=== PATIENT | female | born 1975 | race Hispanic/Latino ===

== ENCOUNTER → 2023-12-01 11:48 | Outpatient (REF) | payer OTHER, SELFPAY | LOC: HWWDC 11:48 | PROVIDERS: ATTENDING PHYSICIAN Obstetrics & Gynecology Gynecology; FAMILY PHYSICIAN Physician Assistant | DX: Z12.31 Encounter for screening mammogram for malignant neoplasm of breast (principal) | CPT/HCPCS: 77063; 77067 ==